=== PATIENT | male | born 1975 | race Two or more races ===

== ENCOUNTER 2022-07-24 14:06 | Emergency (ER) | payer SELFPAY ==
[~2022-07-24] VITALS: Ht 188 cm; Wt 120.0 kg
[2022-07-24 17:22] VITALS: BP 158/104
[2022-07-24] MEDS ORDERED: methylPREDNISolone SOD SUCC 125 MG/2 ML VL IM ONE (18:00)
[2022-07-24] MEDS ORDERED: cefTRIAXone SOD 1,000 MG VL IM ONE (18:00)
[2022-07-24] MEDS ORDERED: BACIOIN15 TOP (18:17)
[2022-07-24] MEDS ORDERED: PRED20TA2 PO (18:17)
[2022-07-24] MEDS ORDERED: CEPH-510 PO (18:22)
[2022-07-24] MEDS ORDERED: ACET-1158 PO (18:22)
== END 2022-07-24 18:27 | disposition home or self-care (01) ==
LOC: ER 14:06
DX: T23.202A Burn of second degree of left hand, unspecified site, initial encounter (principal); T23.201A Burn of second degree of right hand, unspecified site, initial encounter; X11.8XXA Contact with other hot tap-water, initial encounter; Y93.89 Activity, other specified; Y92.89 Other specified places as the place of occurrence of the external cause; Y99.8 Other external cause status
CPT/HCPCS: 96372; 99284; J0696; J2930